=== PATIENT | male | born 1985 | race Caucasian/White ===

== ENCOUNTER 2021-10-12 02:34 | Emergency (ER) | payer MEDICAID ==
[~2021-10-12] VITALS: Ht 182.9 cm; Wt 117.9 kg
[2021-10-12 02:40] VITALS: BP_SYST 170
--- NOTE | 2021-10-12 02:45 | NUR ---
ER examining patient in the triage room.
[2021-10-12] MEDS ORDERED: CIPR7.5D OT (03:26)
--- NOTE | 2021-10-12 03:55 | NUR ---
Patient to ER bed 5 to gown for evaluation. Side rails up. Report given to Joce VELAZQUEZ.
--- NOTE | 2021-10-12 03:58 | NUR ---
36 YR OLD MALE WITH COMPLAINT OF RUBBER EAR BUD PIECE STUCK IN EAR FOR ONE HOUR. PT REPORTS ATTEMPTING TO PULL EARBUD OUT OF EAR AND THE RUBBER ATTCHMENT GOT STUCK AND REMAINED INSIDE EAR CANAL. PT DENIES ANY PERTINENT HEALTH HISTORY. MD AT THE BEDSIDE. WILL MONITOR NEEDED.
--- NOTE | 2021-10-12 04:06 | NUR ---
PT LEFT EAR CONTINUOUSLY IRRIGATED WITH STERILE WATER WITH 20 C SYRINGE. AFTER 1000ML MD WAS ABLE TO GRAB RUBBER PEICE WITH FORCEPS AND REMOVE OBJECT. PT TOLERATED WELL.
[2021-10-12 04:33] VITALS: BP_SYST 170
--- NOTE | 2021-10-12 04:41 | NUR ---
PT PROVIDED WITH HOMECARE INSTRUCTIONS AND PRSCRIPTION. PT ENCOURAGED TO COMPLETE FULL ROUND OF ANTIBIOTICS. ALL QUESTIONS ANSWERED. PT ENCOUARGED TO OBSERVE FOR SIGNS OF INFECTION AND DRAINAGE. PT ENCOURAGED TO FOLLOW UP WITH PRIMARY CARE DOCTOR IF SYMPTOMS CONTINUE OR GET WORSE. PT VERBALIZED UNDERSTANDING. PT DISCHARGED WILL ALL BELONGINGS, AMBULATORY IN STABLE CONDITION
== END 2021-10-12 04:41 | disposition home or self-care (01) ==
LOC: SED 02:34
DX: T16.2XXA Foreign body in left ear, initial encounter (principal); X58.XXXA Exposure to other specified factors, initial encounter; Y93.89 Activity, other specified; Y92.89 Other specified places as the place of occurrence of the external cause; Y99.8 Other external cause status
CPT/HCPCS: 99283; 99284